=== PATIENT | male | born 1990 | race Caucasian/White ===

== ENCOUNTER 2021-12-12 12:03 | Emergency (ER) | payer OTHER, SELFPAY ==
--- NOTE | 2021-12-12 12:05 | ED.URI ---
HPI - URI/Sore Throat General Chief Complaint: Upper Respiratory Infection Stated Complaint: Congestion/Vomiting Time Seen by Provider: 12/12/21 12:05 Source: patient and RN notes reviewed History of Present Illness HPI Narrative: Patient is a 31-year-old male who presents the urgent care with complaints of chest congestion and vomiting. Patient also states that he has had diarrhea. Patient reports symptoms started on Friday with extreme fatigue. Patient has been taking hot baths, drinking hot tea and using Zofran for symptoms. Denies any known fevers. Denies of any ill contacts. No other acute complaints. No acute distress noted. Patient aware of the plan of care. Some parts of this dictation were generated by voice recognition software and may contain typographical and/or grammatical inaccuracies. Related Data Allergies Allergy/AdvReac Type Severity Reaction Status Date / Time No Known Allergies Allergy Unverified 12/12/21 12:13 Review of Systems Review of Systems: CONSTITUTIONAL: Denies fever, chills, or sweats. Reports of fatigue EYES: Denies visual changes, redness, or discharge. ENT: Denies rhinorrhea, congestion, sore throat, or otalgia. CARDIOVASCULAR: Denies chest pain, palpitations, or edema. RESPIRATORY: Reports of chest congestion with mild cough GASTROINTESTINAL: Reports of nausea, vomiting diarrhea without abdominal pain GENITOURINARY: Denies dysuria or hematuria. SKIN: Denies rash or itching. MUSCULOSKELETAL: Denies back pain, joint pain, or myalgia. NEUROLOGIC: Denies headache, numbness, or weakness. All other systems reviewed are negative, except as documented in HPI. PMFSH Comments At the time of my signature, I reviewed and agree with the nursing past medical, surgical, social, and family history. There is no relevant family history pertinent to the patient complaint. Exam Narrative: GENERAL: This is a well-nourished, well-developed patient, in no apparent distress. HEAD: normocephalic, atraumatic. EYES: PERRL. Sclera clear/white. Vision is grossly intact. EARS: External ears normal, auditory canals clear and without drainage, TMs normal without perforation. Hearing grossly intact. NOSE: External nose normal with no obvious nasal discharge, nares without redness, no rhinorrhea. THROAT: Mucous membranes moist, posterior pharynx clear. NECK: Neck supple CARDIOVASCULAR: Regular rate and rhythm without murmurs, gallops, or rubs. RESPIRATORY: Clear to auscultation. Breath sounds equal bilaterally. No wheezes, rales, or rhonchi. GASTROINTESTINAL: Abdomen soft, non-tender, nondistended. Bowel sounds are active. No guarding. SKIN: warm, intact with no suspicious lesions or rash, good texture and turgor. NEURO: awake, alert, and oriented to person, place and time. There were no obvious focal neurologic abnormalities. EXTREMITIES: No clubbing, cyanosis, or edema. Course Course Level of Care: Express Care Visit Vital Signs Vital signs: Vital Signs Temperature 100.3 F H 12/12/21 12:10 Pulse Rate 82 12/12/21 12:10 Respiratory Rate 16 12/12/21 12:10 Blood Pressure 156/96 H 12/12/21 12:10 Pulse Oximetry 98 12/12/21 12:10 Temperature 100.3 F H 12/12/21 12:10 Pulse Rate 82 12/12/21 12:10 Respiratory Rate 16 12/12/21 12:10 Blood Pressure 156/96 H 12/12/21 12:10 Pulse Oximetry 98 12/12/21 12:10 Reviewed-patient is informed that they may have pre-hypertension or hypertension based on a blood pressure reading in the department. I recommend the patient call the primary care provider listed on their discharge instructions or a physician of their choice this week to arrange follow-up for further evaluation of possible pre-hypertension or hypertension. MDM - URI/Sore Throat MDM Narrative Medical decision making narrative: Reviewed lab results with the patient. He is aware that COVID test was negative and flu swab was positive. Advised the patient to use Tylenol/ibuprofen as needed for
[2021-12-12 12:10] VITALS: BP 156/96; PULSE 82; RESP 16; TEMP 37.9; O2SAT 98
== END 2021-12-12 12:35 | disposition home or self-care (01) ==
PROVIDERS: Emergency Provider Nurse Practitioner Family
DX: J10.1 Influenza due to other identified influenza virus with other respiratory manifestations (principal); Z20.822 Contact with and (suspected) exposure to COVID-19
CPT/HCPCS: 87426; 87804; 99213; C9803; G0463

== ENCOUNTER 2022-02-12 09:10 | Emergency (ER) | payer OTHER, SELFPAY ==
[2022-02-12 09:16] VITALS: BP 132/84; PULSE 59; RESP 16; TEMP 37.2; O2SAT 100
--- NOTE | 2022-02-12 09:17 | ED.EYEPROB ---
HPI - Eye Problem General Chief complaint: Eye Problems Stated complaint: Eye Problem/Sore Throat Time Seen by Provider: 02/12/22 09:17 Source: patient and RN notes reviewed History of Present Illness HPI Narrative: Patient is a 31-year-old male who presents the urgent care with complaints of a sore throat for the last week and woke up with a crusty left eye today. Patient denies any known trauma or injury to the eye. Denies any vision changes. Patient has been taking cold and flu medication [id number] for his sore throat and using cough drops. Denies of any other upper respiratory complaints. Denies a fever, nausea, vomiting. Denies of any ill exposures. No other acute complaints. No acute distress noted. Patient aware of the plan of care. Some parts of this dictation were generated by voice recognition software and may contain typographical and/or grammatical inaccuracies. Related Data Allergies Allergy/AdvReac Type Severity Reaction Status Date / Time No Known Allergies Allergy Unverified 02/12/22 09:20 Review of Systems Review of Systems: CONSTITUTIONAL: Denies fever, chills, or sweats. EYES: Reports of crustiness to the left eye ENT: Reports of rhinorrhea, sore throat CARDIOVASCULAR: Denies chest pain, palpitations, or edema. RESPIRATORY: Denies cough or dyspnea. GASTROINTESTINAL: Denies abdominal pain, nausea, vomiting, or diarrhea. GENITOURINARY: Denies dysuria or hematuria. SKIN: Denies rash or itching. MUSCULOSKELETAL: Denies back pain, joint pain, or myalgia. NEUROLOGIC: Denies headache, numbness, or weakness. All other systems reviewed are negative, except as documented in HPI. PMFSH Comments At the time of my signature, I reviewed and agree with the nursing past medical, surgical, social, and family history. There is no relevant family history pertinent to the patient complaint. Exam Narrative: GENERAL: This is a well-nourished, well-developed patient, in no apparent distress. HEAD: normocephalic, atraumatic. EYES: PERRL. Right sclera clear/white. Slightly injected conjunctive a to the left with mild erythema to the left sclera. Vision is grossly intact. EARS: External ears normal, auditory canals clear and without drainage, TMs normal without perforation. Hearing grossly intact. NOSE: External nose normal with no obvious nasal discharge, nares without redness, no rhinorrhea. THROAT: Mucous membranes moist, posterior pharynx clear. Moderate postnasal drainage NECK: Neck supple CARDIOVASCULAR: Regular rate and rhythm without murmurs, gallops, or rubs. RESPIRATORY: Clear to auscultation. Breath sounds equal bilaterally. No wheezes, rales, or rhonchi. SKIN: warm, intact with no suspicious lesions or rash, good texture and turgor. NEURO: awake, alert, and oriented to person, place and time. There were no obvious focal neurologic abnormalities. EXTREMITIES: No clubbing, cyanosis, or edema. Course Course Level of Care: Express Care Visit Vital Signs Vital signs: Vital Signs Temperature 99.0 F 02/12/22 09:16 Pulse Rate 59 L 02/12/22 09:16 Respiratory Rate 16 02/12/22 09:16 Blood Pressure 132/84 02/12/22 09:16 Pulse Oximetry 100 02/12/22 09:16 Oxygen Delivery Room Air 02/12/22 09:16 Temperature 99.0 F 02/12/22 09:16 Pulse Rate 59 L 02/12/22 09:16 Respiratory Rate 16 02/12/22 09:16 Blood Pressure 132/84 02/12/22 09:16 Pulse Oximetry 100 02/12/22 09:16 Oxygen Delivery Room Air 02/12/22 09:16 Reviewed MDM - Eye Problem MDM Narrative Medical decision making narrative: Advised the patient to use the eyedrops to the left eye, wiping the applicator tip after each application. Do not sleep with a fan or the windows open. Use a humidifier at night. Take a daily allergy medication such as Zyrtec or Claritin and use Benadryl prior to bedtime. Follow-up with your PCP within 2 to 5 days or for worsening symptoms or failure to improve. Differential Diagnosis
== END 2022-02-12 09:34 | disposition home or self-care (01) ==
PROVIDERS: Emergency Provider Nurse Practitioner Family
DX: H10.12 Acute atopic conjunctivitis, left eye (principal); T78.40XA Allergy, unspecified, initial encounter
CPT/HCPCS: 99213; G0463

== ENCOUNTER 2024-01-02 08:40 | Emergency (ER) | payer OTHER, SELFPAY ==
[2024-01-02 08:47] VITALS: BP 144/86; PULSE 84; RESP 16; TEMP 36.3; O2SAT 99
--- NOTE | 2024-01-02 08:50 | ED.SKABFB ---
HPI - Skin/Abscess/Foreign Bdy General Chief complaint: Skin/Abscess/Foreign Body Stated complaint: rash around groin area Time Seen by Provider: 01/02/24 08:50 Source: patient, RN notes reviewed and old records reviewed Mode of arrival: ambulatory Limitations: no limitations History of Present Illness HPI narrative: 33 year old male who presents to [facility] care with complaints of rash around his groin area for 1 month duration which is red and itchy. Patient reports that rash has been spreading. He has tried blue star ointment and Lotrimin ointment to area with no improvement. Significant other reports that she had a small ring worm area on her buttock 4-5 weeks ago that has healed and concerned that it could be ring worm. Patient has red rash to groin area but no definite circular areas that have central clearing like with ring worm, no pustule formation is itchy. MD complaint: rash Onset (ago): month(s) (1) Treatments prior to arrival: other (blue star ointment and Lotrimin ointment) Related Data Allergies Allergy/AdvReac Type Severity Reaction Status Date / Time No Known Allergies Allergy Unverified 01/02/24 08:55 Review of Systems Review of Systems: CONSTITUTIONAL: Denies fever, chills, or sweats. CARDIOVASCULAR: Denies chest pain, palpitations, or edema. RESPIRATORY: Denies cough or dyspnea. SKIN: Reports itchy red rash to groin area MUSCULOSKELETAL: Denies joint pain or myalgia. NEUROLOGIC: Denies headache, numbness, or weakness. All systems reviewed & are unremarkable except as noted in HPI and below PMFSH Past Medical History Medical History (Updated 01/03/24 @ 20:29 by Nini Singleton NP) Back pain Closed left clavicular fracture Surgical History Surgical History (Updated 01/03/24 @ 20:29 by Nini Singleton NP) H/O hand surgery right History of carpal tunnel release right Social History Social History (Updated 01/03/24 @ 20:25 by Nini Singleton NP) Smoking status: Former smoker Tobacco type: cigarettes Substance use type: marijuana Living arrangements: with family Gender identity (if verbalized by the patient): Male Comments At time of signature, agree with nursing past medical, surgical, social and family history. There is no relevant family history pertinent to the presenting complaint Exam Narrative: GENERAL: Well-appearing, well-nourished, and in no acute distress. HEAD: Normocephalic, atraumatic. EYES: PERRLA, conjunctivae clear, and EOMI. ENT: Mucous membranes moist. Oropharynx without edema, erythema or lesions. NECK: Supple. No [id number] on room air CHEST: Clear to auscultation. No respiratory distress.SAO2 HEART: Regular rate and rhythm. SKIN: Warm, dry.? Patches of erythema with rash formation no pustules or noted rings with central clearing to groin area is itchy NEURO:? Alert and oriented x3. PSYCH: Normal mood and affect Course Course Emergency Course: Patient is aware of diagnosis, understands and agrees to treatment plan.? Anticipatory guidance given.? Patient agrees to follow-up as directed and is aware of reasons to seek care at the emergency department. Portions of this record may have been created with voice recognition software Level of Care: Express Care Visit Vital Signs Vital signs: Vital Signs Temperature 36.3 C L 01/02/24 08:47 Pulse Rate 84 01/02/24 08:47 Respiratory Rate 16 01/02/24 08:47 Blood Pressure 144/86 H 01/02/24 08:47 Pulse Oximetry 99 01/02/24 08:47 Oxygen Delivery Room Air 01/02/24 08:47 Temperature 36.3 C L 01/02/24 08:47 Pulse Rate 84 01/02/24 08:47 Respiratory Rate 16 01/02/24 08:47 Blood Pressure 144/86 H 01/02/24 08:47 Pulse Oximetry 99 01/02/24 08:47 Oxygen Delivery Room Air 01/02/24 08:47 Reviewed MDM - Skin/Abscess/Foreign Bdy MDM Narrative Medical decision making narrative: Does not appear at this time to be erythema multiforme
== END 2024-01-02 09:08 | disposition home or self-care (01) ==
PROVIDERS: Emergency Provider Registered Nurse
DX: B35.6 Tinea cruris (principal); Z87.891 Personal history of nicotine dependence
CPT/HCPCS: 99213; G0463